=== PATIENT | male | born 1965 | race Caucasian/White ===

== ENCOUNTER 2020-04-24 06:37 | Day surgery (SDC) | payer BC ==
[~2020-04-24] VITALS: Ht 188 cm; Wt 94.7 kg
[~2020-04-24 06:37] MED LIST: CHOL10002; IRBE150; IRBE75 PO; LANS30EC PO; TADA10TA PO
== END 2020-04-24 08:56 | disposition home or self-care (01) ==
LOC: ORSCSDS 06:37
PROVIDERS: Internal Medicine Gastroenterology
PROC: 0DBP8ZX Excision of Rectum, Via Natural or Artificial Opening Endoscopic, Diagnostic (ICD-10-PCS; principal; 2020-04-24 08:00)
PROC: 0DBH8ZX Excision of Cecum, Via Natural or Artificial Opening Endoscopic, Diagnostic (ICD-10-PCS; principal; 2020-04-24 08:00)
PROC: 0DBK8ZX Excision of Ascending Colon, Via Natural or Artificial Opening Endoscopic, Diagnostic (ICD-10-PCS; principal; 2020-04-24 08:00)
PROC: 0DBL8ZX Excision of Transverse Colon, Via Natural or Artificial Opening Endoscopic, Diagnostic (ICD-10-PCS; principal; 2020-04-24 08:00)
DX: Z12.11 Encounter for screening for malignant neoplasm of colon (principal); Z86.010 Personal history of colon polyps; D12.3 Benign neoplasm of transverse colon; D12.2 Benign neoplasm of ascending colon; D12.0 Benign neoplasm of cecum; K62.1 Rectal polyp; K64.8 Other hemorrhoids; Z80.0 Family history of malignant neoplasm of digestive organs; K21.9 Gastro-esophageal reflux disease without esophagitis; E78.5 Hyperlipidemia, unspecified; Z79.899 Other long term (current) drug therapy
CPT/HCPCS: 88305; J2704; J7120

== ENCOUNTER → 2023-03-09 | Outpatient (CLI) | payer BC | LOC: LAB 10:25 → LAB SHORT 10:25 | DX: D48.5 Neoplasm of uncertain behavior of skin (principal) | CPT/HCPCS: 88305 ==

== ENCOUNTER 2023-06-15 08:13 | Day surgery (SDC) | payer BC ==
[~2023-06-15] VITALS: Ht 188 cm; Wt 95.6 kg
[~2023-06-15 08:13] MED LIST changes: +IRBE150 PO; +ROSU10TA PO
[2023-06-15 10:59] VITALS: BP 118/97
== END 2023-06-15 10:54 | disposition home or self-care (01) ==
LOC: ORSCSDS 08:13
PROVIDERS: Internal Medicine Gastroenterology
PROC: 0DB58ZX Excision of Esophagus, Via Natural or Artificial Opening Endoscopic, Diagnostic (ICD-10-PCS; principal; 2023-06-15 09:30)
PROC: 0DB78ZX Excision of Stomach, Pylorus, Via Natural or Artificial Opening Endoscopic, Diagnostic (ICD-10-PCS; principal; 2023-06-15 09:30)
PROC: 0DBM8ZX Excision of Descending Colon, Via Natural or Artificial Opening Endoscopic, Diagnostic (ICD-10-PCS; principal; 2023-06-15 09:30)
PROC: 0DBL8ZX Excision of Transverse Colon, Via Natural or Artificial Opening Endoscopic, Diagnostic (ICD-10-PCS; principal; 2023-06-15 09:30)
DX: K21.9 Gastro-esophageal reflux disease without esophagitis (principal); Z12.11 Encounter for screening for malignant neoplasm of colon; Z86.010 Personal history of colon polyps; Z80.0 Family history of malignant neoplasm of digestive organs; K57.30 Diverticulosis of large intestine without perforation or abscess without bleeding; K31.7 Polyp of stomach and duodenum; D12.3 Benign neoplasm of transverse colon; K63.5 Polyp of colon; E78.5 Hyperlipidemia, unspecified; Z79.899 Other long term (current) drug therapy
CPT/HCPCS: 88305; 88341; 88342; J2704

== ENCOUNTER 2024-05-21 06:17 | Day surgery (SDC) | payer BC ==
[~2024-05-21] VITALS: Ht 188 cm; Wt 94.9 kg
[2024-05-21] MEDS ORDERED: Aspir 8181 MG (06:42)
[2024-05-21] MEDS ORDERED: propofoL 20 ML IV ONE ×2 (06:55→07:27)
[2024-05-21] MEDS ORDERED: Midazolam HCl 1MG / ML 2ML Vial ONE (06:55)
[2024-05-21] MEDS ORDERED: HYDROmorphone HCl/Pf 1MG SYR ONE (06:56)
[2024-05-21] MEDS ORDERED: Dexamethasone Sod Phos 10 MG/ML 1ML VIAL ONE (06:57)
[2024-05-21] MEDS ORDERED: Ondansetron HCl 2 MG / ML 2ML Vial ONE (06:57)
[2024-05-21] MEDS ORDERED: Ropivacaine 0.5% HCL/PF 5 MG/ML 30ML Vial ONE (07:05)
[2024-05-21] MEDS ORDERED: Lactated Ringer's 1,000 ML IV ONE ×3 (07:06→07:12)
[2024-05-21] MEDS ORDERED: CeFAZolin Sodium 2,000 MG VIAL ONE (07:12)
[2024-05-21] MEDS ORDERED: NS 50 ML IV ONE (07:12)
[2024-05-21] MEDS ORDERED: Ketorolac Tromethamine 30mg Vial ONE (07:28)
[2024-05-21] MEDS ORDERED: Vancomycin HCL 1,000 MG in NS 250 ML IV SCH (07:35)
[2024-05-21] MEDS ORDERED: ePHEDrine Sulfate 50 MG/ML 1ML Injection ONE (07:54)
[2024-05-21] MEDS ORDERED: Glycopyrrolate 0.2 MG/ML 5ML VIAL ONE (07:55)
--- NOTE | 2024-05-21 08:11 | NUR ---
05/21/24 0811 Phylicia Montanez 1 GM VANCO STARTED AT 0740 1ML OF EPI ADDED TO 1 IRREGATION BAG ROPIVACAINE 0.5% 30ML MIXED WITH 0.15ML OF EPI. VERIFFED WITH KNAziza. TO MAKE ROPIVACAINE 0.5% WITH EPI 1:200,000. 10ML ON TABLE.
[2024-05-21] MEDS ORDERED: Ropivacaine 0.5% HCl/Pf 5 MG/ML 20ML VIAL INJ ONE ×2 (08:19)
[2024-05-21] MEDS ORDERED: EPINEPhrine HCl 0.1 MG/ML 10ML SYR XX ONE ×2 (08:19)
[2024-05-21 09:53] VITALS: BP 137/87
== END 2024-05-21 09:45 | disposition home or self-care (01) ==
LOC: ORSCSDS 06:17
PROVIDERS: Orthopaedic Surgery
PROC: 0SBC4ZZ Excision of Right Knee Joint, Percutaneous Endoscopic Approach (ICD-10-PCS; principal; 2024-05-21 07:30)
DX: S83.241A Other tear of medial meniscus, current injury, right knee, initial encounter (principal); M23.41 Loose body in knee, right knee; I10 Essential (primary) hypertension; E78.5 Hyperlipidemia, unspecified; J45.909 Unspecified asthma, uncomplicated; Z79.899 Other long term (current) drug therapy; Z79.82 Long term (current) use of aspirin
CPT/HCPCS: J0690; J1100; J1170; J1885; J2250; J2405; J2704; J2795; J3370; J7050; J7120

== ENCOUNTER 2024-10-24 06:12 | Day surgery (SDC) | payer BC ==
[2024-10-24] VITALS (21 sets, daily range): BP systolic 78–161; BP diastolic 46–96
[~2024-10-24] VITALS: Ht 184 cm; Wt 96.0 kg
[~2024-10-24 06:12] MED LIST changes: +Aspir 8181 MG PO; -CHOL10002; +VITAMIN B125000 MC1 PO; +VITAMIN D310 MC4 PO
[2024-10-24] MEDS ORDERED: CeFAZolin Sodium 2,000 MG in NS 100 ML IV SCH ×2 (06:20→16:00)
[2024-10-24] MEDS ORDERED: OxyCODONE HCL 10 MG TABCR PO SCH (06:20)
[2024-10-24] MEDS ORDERED: Ropivacaine 0.5% HCl/Pf 123.125 MG,EPINEPHrine HCL 0.25 MG,Ketorolac Tromethamine 15 MG... INFIL SCH (06:20)
[2024-10-24] MEDS ORDERED: Acetaminophen 500 MG Tab PO SCH ×2 (06:20→08:00)
[2024-10-24] MEDS ORDERED: Vancomycin HCL 1,000 MG in NS 250 ML IV SCH ×2 (06:20→19:00)
[2024-10-24] MEDS ORDERED: Chlorhexidine Mouth Care 15 ML UDC MT SCH (06:20)
[2024-10-24] MEDS ORDERED: Tranexamic Acid 1,000 MG in NS 100 ML IV SCH (06:20)
[2024-10-24] MEDS ORDERED: Lactated Ringer's 1,000 ML IV SCH ×2 (06:20→07:00)
[2024-10-24] MEDS ORDERED: Metoclopramide HCl 5MG / ML 2ML Vial IV PRN (06:45)
[2024-10-24] MEDS ORDERED: OxyCODONE HCL 5 MG TAB PO PRN ×2 (06:50)
[2024-10-24] MEDS ORDERED: Magnesium Hydroxide Conc 10 ML UDC PO PRN (06:50)
[2024-10-24] MEDS ORDERED: Promethazine HCl 25 MG Tab PO PRN (06:50)
[2024-10-24] MEDS ORDERED: Ondansetron HCl 2 MG / ML 2ML Vial IV PRN (06:50)
[2024-10-24] MEDS ORDERED: DiphenhydrAMINE HCL 25 MG Cap PO PRN (06:55)
[2024-10-24] MEDS ORDERED: FLU VACC TS2024-25(6MOS UP)/PF 45 MCG/0.5 ML SYRINGE IM PRN (06:55)
[2024-10-24] MEDS ORDERED: Bisacodyl 10 MG Supp PR PRN (06:55)
[2024-10-24] MEDS ORDERED: HYDROmorphone HCl/Pf 1MG SYR IV PRN (06:55)
[2024-10-24] MEDS ORDERED: propofoL 150 ML IV ONE (07:27)
[2024-10-24] MEDS ORDERED: MOBIC15 MG PO (07:36)
[2024-10-24] MEDS ORDERED: Midazolam HCl 1MG / ML 2ML Vial ONE (07:38)
--- NOTE | 2024-10-24 07:38 | NUR ---
History, Chart, Medications and Allergies reviewed before start of procedure. Patient up to Ambulate independently. Gait steady. Pre-Op teaching done. Pt verbalizes understanding. Patient confirms NPO status and agrees with scheduled surgery. Patient reports completing Chlorhexadine shower X6 prior to admission to hospital. Lungs clear T/O to Auscultation. Patient States Post-Procedure ride home has been arranged.
[2024-10-24] MEDS ORDERED: Vancomycin HCl 1000 MG ADDvantage ONE (07:46)
--- NOTE | 2024-10-24 08:22 | NUR ---
10/24/24 0822 Omar Fortune 2G ANCEF GIVEN BY ANESTHESIA AT 0742
[2024-10-24] MEDS ORDERED: Cyanocobalamin 500 MCG Tab PO SCH (09:00)
[2024-10-24] MEDS ORDERED: Docusate Sodium 100 MG Cap PO SCH (09:00)
[2024-10-24] MEDS ORDERED: Irbesartan 150 MG Tab PO SCH (09:00)
[2024-10-24] MEDS ORDERED: Phenylephrine HCl 10mg/ml 1 ml Vial ONE (09:35)
[2024-10-24] MEDS ORDERED: Phenylephrine HCl 100 MCG/ML-NS 10MLSYR (1MG/10ML) ONE (09:35)
[2024-10-24] MEDS ORDERED: Ketorolac Tromethamine 30mg Vial ONE (10:06)
[2024-10-24] MEDS ORDERED: Ketorolac Tromethamine 15mg Vial IV SCH (12:00)
[2024-10-24] MEDS ORDERED: Lactated Ringer's 1,000 ML IV ONE (17:20)
--- NOTE | 2024-10-24 17:25 | NUR ---
THIS RN WAS CALLED TO ROOM AT 1700 DUE TO BRIGHT RED BLOOD TO LOWER PART OF BULKY DRSG. UPON STARTING TO HOLD LEG UP WHILE 2nd RN CUT OFF MEGAN WRAP, PT BECAME DIAPHORETIC, REPORTED NAUSEA & GENERAL UNWELL FEELING. PT VS CHARTED, WAS PUT INTO [place] POSITION & REPSONDED WELL. IVF BOLUS OF 250MLS STARTED. BULKY GAUZE REINFORCED w/ ABD PADS & REWRAPPED w/ MEGAN WRAP. CRYOTHERAPY REPLACED. NOTIFIED.
--- NOTE | 2024-10-24 17:40 | NUR ---
ATTEMPT TO DANGLE PT FEELING BETTER & WANTED TO DANGLE. BP OBTAINED IN SITTING POSITION. BP WAS CHECKING, PT BECAME PALE & DIAPHORETIC AGAIN. BP HAD LOWERED. REPORTED FEELING UNWELL & WAS ASSISTED BACK TO LYING POSITION.
--- NOTE | 2024-10-24 19:26 | NUR ---
NO CHANGE TO SIZE OF THIGH.
[2024-10-24] MEDS ORDERED: Rosuvastatin Calcium 10 MG Tab PO SCH (21:00)
--- NOTE | 2024-10-25 05:10 | NUR ---
SHIFT SUMMARY POD 1 R TKA PT RESTED MOST OF SHIFT. PAIN MANAGED PER EMAR. TOLERATING PO INTAKE, VOIDING. PT WAS ABLE TO STAND AT THE SIDE OF THE BED, NOT ABLE TO WALK BUT ABLE TO STEP IN PLACE. DENIES N/T TO LE'S. DRESSING WAS CHANGED AT SHIFT CHANGE LAST NIGHT, REMAINS C/D/I AT THIS TIME. PLAN IS TO WORK WITH THERAPY AND THEN D/C HOME. VSS. NO OTHER CONCERNS AT THIS TIME, CALL LIGHT WITHIN REACH
[2024-10-25 05:16] VITALS: BP 134/86
[2024-10-25 05:41] LABS: BASOPHILS ABSOLUTE AUTO 0.04 K/mm3 (0.00-0.23); BASOPHILS PERCENT AUTO 1 % (0-2); EOSINOPHILS ABSOLUTE AUTO 0.21 K/mm3 (0.00-0.68); EOSINOPHILS PERCENT AUTO 3 % (0-6); Hematocrit 32.7 % (37.0-53.0); Hemoglobin 11.4 g/dL (13.5-17.5); IMMATURE GRAN ABSOLUTE AUTO 0.02 K/mm3 (0.00-0.10); IMMATURE GRAN PERCENT AUTO 0 % (0-1); LYMPHOCYTES ABSOLUTE AUTO 1.38 K/mm3 (0.84-5.20); LYMPHOCYTES PERCENT AUTO 20 % (21-46); MONOCYTES ABSOLUTE AUTO 0.87 K/mm3 (0.16-1.47); MONOCYTES PERCENT AUTO 12 % (4-13); Mean Corpuscular HGB 31.6 pg (26.0-34.0); Mean Corpuscular HGB Conc 34.9 g/dL (31.5-36.5); Mean Corpuscular Volume 91 fL (80-100); Mean Platelet Volume 11.2 fL (9.1-12.4); NEUTROPHILS ABSOLUTE AUTO 4.53 K/mm3 (1.96-9.15); NEUTROPHILS PERCENT AUTO 64 % (41-73); Platelet Count 127 K/mm3 (150-400); RDW Coefficient Variation 12.1 % (11.7-14.2); RDW Standard Deviation 40.3 fL (35.1-46.3); Red Blood Cell Count 3.61 M/mm3 (4.30-5.90); White Blood Cell Count 7.05 K/mm3 (4.00-11.30)
[2024-10-25 05:57] LABS: Bun/Creatinine Ratio 12.4 (12.0-20.0); Calcium, Blood 8.3 mg/dL (8.5-10.1); Creatinine, Blood 1.05 mg/dL (0.60-1.20); Potassium, Blood 4.3 mmol/L (3.5-5.5)
[2024-10-25] MEDS ORDERED: Pantoprazole Sodium 40 MG Tab PO SCH (06:00)
[2024-10-25 07:24] VITALS: BP 137/83
[2024-10-25] MEDS ORDERED: PROM25 PO (08:36)
[2024-10-25] MEDS ORDERED: OXYC5 PO (08:36)
[2024-10-25] MEDS ORDERED: SULTRIDS PO (08:36)
[2024-10-25] MEDS ORDERED: ONDA4ODT SL (08:47)
[2024-10-25 08:49] VITALS: BP 128/76
[2024-10-25] MEDS ORDERED: TraMADol HCl 50 MG Tab PO PRN (08:50)
[2024-10-25] MEDS ORDERED: Trimethoprim/Sulfamethoxazole DS Tab PO SCH (09:00)
[2024-10-25] MEDS ORDERED: Cholecalciferol 1000 Unit Tablet (=25MCG) PO SCH (09:00)
[2024-10-25] MEDS ORDERED: Aspirin 81 MG Chew PO SCH (09:00)
--- NOTE | 2024-10-25 13:37 | NUR ---
DISCHARGE PT EDUCATED ON AND RECEIVED PRINTED DISCHARGE INSTRUCTIONS AND VERBALIZED AN UNDERSTANDING. TRAMADOL RX GIVEN TO PT . PT VERBALIZED HE FILLED ALL OTHER RX PRIOR TO SURGERY. IV DC'D. EXTRA AQUACEL DRESSINGS GIVEN TO PT. PT LEFT WITH ALL PERSONAL BELONGINGS. PT ESCORTED OUT VIA W/C TO VEHICLE.
== END 2024-10-25 13:30 | disposition home or self-care (01) ==
LOC: ORSCMMR 06:12 → ORD 07:30 → SURS 11:25 → ORSCMMR 10-25 13:30 → ORD 10-31 07:30
PROVIDERS: Orthopaedic Surgery
PROC: 0SRC0JA Replacement of Right Knee Joint with Synthetic Substitute, Uncemented, Open Approach (ICD-10-PCS; principal; 2024-10-24 07:30)
DX: M17.11 Unilateral primary osteoarthritis, right knee (principal); I10 Essential (primary) hypertension; Z79.899 Other long term (current) drug therapy; Z79.82 Long term (current) use of aspirin
CPT/HCPCS: 36415; 73560-RT; 80048; 83735; 85025; 97110; 97116; 97162; 97530; A9270; C1713; C1776; J0171; J0690; J0735; J1885; J2250; J2371; J2405; J2704; J2795; J3370; J7050; J7120

== ENCOUNTER 2025-01-30 06:09 | Day surgery (SDC) | payer OTHER ==
[~2025-01-30] VITALS: Ht 188 cm; Wt 96.3 kg
[2025-01-30] VITALS (15 sets, daily range): BP systolic 96–148; BP diastolic 50–98
[~2025-01-30 06:09] MED LIST changes: +HYDCHL25 PO; +MOBIC15 MG PO; +ONDA4ODT SL; +OXYC5 PO; +PROM25 PO; +SULTRIDS PO
[2025-01-30] MEDS ORDERED: Ropivacaine 0.5% HCl/Pf 123.125 MG,EPINEPHrine HCL 0.25 MG,Ketorolac Tromethamine 15 MG... INFIL SCH (06:15)
[2025-01-30] MEDS ORDERED: Chlorhexidine Mouth Care 15 ML UDC MT SCH (06:15)
[2025-01-30] MEDS ORDERED: Morphine Sulfate 15 MG TABCR PO SCH (06:15)
[2025-01-30] MEDS ORDERED: CeFAZolin Sodium 2,000 MG in NS 100 ML IV SCH ×2 (06:15→16:00)
[2025-01-30] MEDS ORDERED: Acetaminophen 500 MG Tab PO SCH ×2 (06:15→16:00)
[2025-01-30] MEDS ORDERED: Lactated Ringer's 1,000 ML IV SCH ×2 (06:15→07:10)
[2025-01-30] MEDS ORDERED: Tranexamic Acid 100 ML IV SCH (06:15)
[2025-01-30] MEDS ORDERED: Vancomycin HCL 1,000 MG in NS 250 ML IV SCH ×2 (06:15→19:00)
[2025-01-30] MEDS ORDERED: CeFAZolin Sodium 2,000 MG VIAL ONE (06:48)
[2025-01-30] MEDS ORDERED: propofoL 20 ML IV ONE ×2 (06:52→09:32)
[2025-01-30] MEDS ORDERED: FentaNYL Citrate 50 MCG/ML 2 ML Injection ONE ×2 (06:53→08:45)
[2025-01-30] MEDS ORDERED: Midazolam HCl 1MG / ML 2ML Vial ONE (06:53)
--- NOTE | 2025-01-30 06:53 | NUR ---
Ambulatory in Day Surgery History, Chart, Medications and Allergies reviewed before start of procedure. Pre-Op teaching done. Pt verbalizes understanding.
[2025-01-30] MEDS ORDERED: FLU VACC TS2024-25(6MOS UP)/PF 45 MCG/0.5 ML SYRINGE IM SCH (07:05)
[2025-01-30] MEDS ORDERED: HYDROmorphone HCl/Pf 1MG SYR IV PRN (07:05)
[2025-01-30] MEDS ORDERED: DiphenhydrAMINE HCL 25 MG Cap PO PRN (07:05)
[2025-01-30] MEDS ORDERED: Bisacodyl 10 MG Supp PR PRN (07:10)
[2025-01-30] MEDS ORDERED: Promethazine HCl 25 MG Tab PO PRN (07:10)
[2025-01-30] MEDS ORDERED: TraMADol HCl 50 MG Tab PO PRN (07:10)
[2025-01-30] MEDS ORDERED: Vancomycin HCl 1000 MG ADDvantage ONE (07:12)
[2025-01-30] MEDS ORDERED: Magnesium Hydroxide Conc 10 ML UDC PO PRN (07:15)
[2025-01-30] MEDS ORDERED: Metoclopramide HCl 5MG / ML 2ML Vial IV PRN (07:15)
[2025-01-30] MEDS ORDERED: OxyCODONE HCL 5 MG TAB PO PRN (07:15)
[2025-01-30] MEDS ORDERED: Ondansetron HCl 2 MG / ML 2ML Vial IV PRN (07:15)
[2025-01-30] MEDS ORDERED: propofoL 50 ML IV ONE (07:21)
--- NOTE | 2025-01-30 11:20 | NUR ---
POST OP ARRIVAL TO SURGICAL UNIT VIA HOSPITAL BED. ALERT, ORIENTED, & PLEASANT. ABLE TO WIGGLE TOES BUT NUMBNESS/TINGLING FROM BELLY BUTTON DOWN. MEGAN WRAP WNL. PPP. LUNGS CLEAR. HRR. DENIES PAIN OR N/V. SNACKS & DRINKS GIVEN. IVF INFUSING.
[2025-01-30] MEDS ORDERED: Ketorolac Tromethamine 15mg Vial IV SCH (12:00)
[2025-01-30] MEDS ORDERED: ACET500 PO (17:31)
[2025-01-30] MEDS ORDERED: SULTRIDS PO (17:32)
[2025-01-30] MEDS ORDERED: TRAM50 PO (17:33)
--- NOTE | 2025-01-30 18:20 | NUR ---
DISCHARGE UP IN ROOM, TO BATHROOM, & UP TO CHAIR PRIOR TO THERAPY. PT HAS WORKED w/ THERAPY. PAIN WELL CONTROLLED. EATING, DRINKING, & VOIDED x 1. POLAR PACK SENT w/ PT. ESCORTED OUT VIA W/C TO [facility] .
[2025-01-30] MEDS ORDERED: Docusate Sodium 100 MG Cap PO SCH (21:00)
[2025-01-30] MEDS ORDERED: Rosuvastatin Calcium 10 MG Tab PO SCH (21:00)
[2025-01-31] MEDS ORDERED: Omeprazole 20 MG CapCR PO SCH (06:00)
[2025-01-31] MEDS ORDERED: Irbesartan 150 MG Tab PO SCH (09:00)
[2025-01-31] MEDS ORDERED: Trimethoprim/Sulfamethoxazole DS Tab PO SCH (09:00)
[2025-01-31] MEDS ORDERED: Cholecalciferol 1000 Unit Tablet (=25MCG) PO SCH (09:00)
[2025-01-31] MEDS ORDERED: Cyanocobalamin 500 MCG Tab PO SCH (09:00)
[2025-01-31] MEDS ORDERED: HydroCHLOROthiazide 25 mg Tab PO SCH (09:00)
[2025-01-31] MEDS ORDERED: Aspirin 81 MG Chew PO SCH (09:00)
== END 2025-01-30 18:20 | disposition home or self-care (01) ==
LOC: ORSCMMR 06:09 → ORD 06:09 → SURS 10:50 → ORD 18:20
PROVIDERS: Orthopaedic Surgery
PROC: 0SRD0JA Replacement of Left Knee Joint with Synthetic Substitute, Uncemented, Open Approach (ICD-10-PCS; principal; 2025-01-30 07:30)
DX: M17.12 Unilateral primary osteoarthritis, left knee (principal); Z96.651 Presence of right artificial knee joint; I10 Essential (primary) hypertension; Z79.899 Other long term (current) drug therapy
CPT/HCPCS: 73560-LT; 97110; 97161; 97530; A9270; C1713; C1776; J0171; J0690; J0735; J1885; J2250; J2704; J2795; J3010; J3370; J7050; J7120